=== PATIENT | female | born 1945 | race Caucasian/White ===

== ENCOUNTER 2024-05-04 21:51 | Emergency (ER) | payer OTHER ==
[~2024-05-04] VITALS: Ht 167.6 cm; Wt 99.8 kg
[2024-05-04 21:58] VITALS: BP_SYST 139; PULSE 63; RESP 19; TEMP 98.5; O2SAT 98
[2024-05-05 00:11] LABS: HEMATOCRIT 24.7 % (36-48); HEMOGLOBIN 8.5 g/dL (12.0-16.0); MEAN CORPUSCULAR HEMOGLOBIN 32 pg (27-31); MEAN CORPUSCULAR HGB CONC 34 % (32-36); MEAN CORPUSCULAR VOLUME 92 fL (79.0-98.0); PLATELET COUNT (AUTO) 82 K/uL (130-430); RED BLOOD CELL COUNT(AUTO) 2.67 MIL/uL (4.2-6.2); RED CELL DISTRIBUTION WIDTH 15.1 % (9.0-15.0); WHITE BLOOD COUNT (AUTO) 3.6 K/uL (4.8-10.8)
[2024-05-05 00:26] LABS: POTASSIUM 4.3 mmol/L (3.5-5.1)
[2024-05-05 00:34] LABS: ANION GAP 7 (5-15); CALCIUM 8.8 mg/dL (8.4-11.0); CARBON DIOXIDE 26 mmol/L (23-29); CHLORIDE 105 mmol/L (98-107); CREATININE 0.86 mg/dL (0.55-1.30); GLUCOSE 155 mg/dL (74-106); SODIUM SERUM 138 mmol/L (136-145); UREA NITROGEN, BLOOD 20 mg/dL (8-21)
[2024-05-05 00:50] VITALS: BP_SYST 135; PULSE 70; RESP 19; TEMP 97.8; O2SAT 98
[2024-05-05 01:10] LABS: EOSINOPHILS % (MANUAL) 3 % (0-7); LYMPHOCYTES % (MANUAL) 15 % (20-46); MONOCYTES % (MANUAL) 10 % (0-11); PLATELET ESTIMATE DECREASED (ADEQUATE)
== END 2024-05-05 00:48 | disposition home or self-care (01) ==
LOC: SED 21:51
DX: D64.9 Anemia, unspecified (principal); K92.2 Gastrointestinal hemorrhage, unspecified; E11.9 Type 2 diabetes mellitus without complications; M79.7 Fibromyalgia; Z85.07 Personal history of malignant neoplasm of pancreas; Z88.0 Allergy status to penicillin; Z88.1 Allergy status to other antibiotic agents
CPT/HCPCS: 36415; 80048; 85007; 85027; 99283